=== PATIENT | female | born 1985 | race Two or more races ===

== ENCOUNTER 2018-12-09 23:07 | Emergency (ER) | payer MEDICAID ==
[~2018-12-09] VITALS: Ht 167.6 cm; Wt 113.4 kg
[~2018-12-09 23:07] MED LIST: ALBUTEROL2.5 MG/3 M INH
[2018-12-09 23:10] VITALS: BP 133/82
--- NOTE | 2018-12-09 23:10 | NUR ---
ED Nurse Note: Pt was BIBA from home, c/o right side of abdominal pain 07/31 today. Pt is A/O X 4. Vital signs stable at this time. waitng for orders.
[2018-12-09] MEDS ORDERED: Morphine Sulfate 4mg/ml Inj (IV USE ONLY) IVP ONE (23:15)
[2018-12-09 23:35] LABS: BASOPHILS % (AUTO) 1.2 % (0.0-2.0); EOSINOPHILS % (AUTO) 1.4 % (0.0-3.0); HEMATOCRIT 42.5 % (37.0-47.0); HEMOGLOBIN 14.8 G/DL (12.0-16.0); LYMPHOCYTES % (AUTO) 24.4 % (20.0-45.0); MEAN CORPUSCULAR VOLUME 90 FL (80-99); MONOCYTES % (AUTO) 6.6 % (1.0-10.0); NEUTROPHILS % (AUTO) 66.3 % (45.0-75.0); PLATELET COUNT 261 K/UL (150-450); WHITE BLOOD COUNT 9.4 K/UL (4.8-10.8)
[2018-12-09 23:45] LABS: ANION GAP 6 mmol/L (5-15); BLOOD UREA NITROGEN 10 mg/dL (7-18); CALCIUM 8.3 MG/DL (8.5-10.1); CARBON DIOXIDE 30 MMOL/L (21-32); CHLORIDE 101 MMOL/L (98-107); CREATININE 0.6 MG/DL (0.55-1.30); POTASSIUM 4.7 MMOL/L (3.5-5.1); SODIUM 136 MMOL/L (136-145)
[2018-12-09 23:49] LABS: ALANINE AMINOTRANSFERASE 24 U/L (12-78); ALBUMIN 3.3 G/DL (3.4-5.0); ALBUMIN/GLOBULIN RATIO 0.8 (1.0-2.7); ALKALINE PHOSPHATASE 54 U/L (46-116); ASPARTATE AMINO TRANSFERASE 39 U/L (15-37); BILIRUBIN,TOTAL 0.4 MG/DL (0.2-1.0)
--- NOTE | 2018-12-10 00:05 | NUR ---
ED Nurse Note: Blood sample collected and sent to Lab.
--- NOTE | 2018-12-10 00:09 | NUR ---
ED Nurse Note: Pain meds given as ordered.
--- NOTE | 2018-12-10 00:10 | NUR ---
ED Nurse Note: Pt was sent down for CT of Abdomen.
--- NOTE | 2018-12-10 00:25 | NUR ---
ED Nurse Note: Pt was returned from CT.
--- NOTE | 2018-12-10 00:30 | NUR ---
ED Nurse Note: IV was infiltrated. Tried to insert IV by . NO IV access at this time.
[2018-12-10] MEDS ORDERED: HYDROmorphone 1mg/ml Carpuject IM ONE (00:45)
--- NOTE | 2018-12-10 00:52 | NUR ---
ED Nurse Note: Repeated Pain meds given by IM.
--- NOTE | 2018-12-10 01:15 | Emergency Room Report ---
History of Present Illness General Chief Complaint: Abdominal Pain Source: Patient, EMS Present Illness HPI This is a 33-year-old female with no past medical history. She presents with chief complaint is abdominal pain. Onset was an hour prior to arrival. Pain was acute. Pain is severe. 10 out of 10. Localized to the upper quadrants. Has nausea vomiting. Has diarrhea. Never had this problem before. Admits to using methamphetamine earlier this morning. No other complaint. Has abdominal pain before but never this severe. Nothing made it better. Palpation made it worse. Allergies: Coded Allergies: No Known Allergies (Unverified , 12/09/18) Patient History Past Medical History: see triage record, old chart reviewed Past Surgical History: none Pertinent Family History: none Social History: Reports: smoking, drug use - Methamphetamine Now: No Immunizations: other Reviewed Nursing Documentation: PMH: Agreed; PSxH: Agreed Nursing Documentation-PMH Past Medical History: No History, Except For Review of Systems Eye: Denies: eye pain, blurred vision ENT: Denies: ear pain, nose congestion, throat swelling Respiratory: Denies: cough, shortness of breath Cardiovascular: Denies: chest pain, palpitations Gastrointestinal: Reports: abdominal pain, nausea, vomiting; Denies: diarrhea Musculoskeletal: Denies: back pain, joint pain Skin: Denies: rash Neurological: Denies: headache, numbness Endocrine: Denies: increased thirst, increased urine Hematologic/Lymphatic: Denies: easy bruising All Other Systems: negative except mentioned in HPI Physical Exam Vital Signs Date Time Temp Pulse Resp B/P (MAP) Pulse Ox O2 Delivery O2 Flow Rate FiO2 12/09/18 23:00 98.8 87 28 130/61 100 Room Air vitals normal Sp02 EP Interpretation: reviewed, normal General Appearance: well appearing, no apparent distress, alert, moderate distress - From pain, obese Head: normocephalic, atraumatic Eyes: bilateral eye PERRL, bilateral eye EOMI ENT: hearing grossly normal, normal pharynx Neck: full range of motion, supple, no meningismus Respiratory: chest non-tender, lungs clear, normal breath sounds Cardiovascular #1: regular rate, rhythm, no murmur Gastrointestinal: normal bowel sounds, no mass, no organomegaly, no bruit, non- distended, tenderness - Diffuse, upper quadrants Musculoskeletal: back normal, gait/station normal, normal range of motion Psychiatric: anxious Skin: warm/dry Medical Decision Making Diagnostic Impression: Primary Impression: Cholelithiasis Qualified Codes: K80.20 - Calculus of gallbladder without cholecystitis without obstruction Additional Impression: Morbid obesity with BMI of 40.0-44.9, adult ER Course Patient with abdominal pain. CT scan showed large gallstone. Patient felt better now. Patient was a very poor IV access. Her IV infiltrated. She had rash with injection of morphine to the left arm. Benadryl given. No evidence of obstruction or cholecystitis. We'll discharge home once pain is better controlled. CT/MRI/US Diagnostic Results CT/MRI/US Diagnostic Results : Imaging Test Ordered: CT abdomen and pelvis Impression read by radiologist. Distended gallbladder with 1.6 cm gallstone Last Vital Signs Date Time Temp Pulse Resp B/P (MAP) Pulse Ox O2 Delivery O2 Flow Rate FiO2 12/09/18 23:10 98.4 82 28 133/82 100 Room Air Status: improved Disposition: HOME, SELF-CARE Condition: Stable Scripts Ibuprofen* (MOTRIN*) 600 Mg Tablet 600 MG ORAL THREE TIMES A DAY, #30 TAB 0 Refills Prov: Norman Richard MD 12/10/18 Hydrocodone/Acetaminophen 5-325* (HYDROCODONE/ACETAMINOPHEN 5-325*) 1 Each Tablet 1 TAB ORAL Q6H PRN for For Pain, #10 TAB 0 Refills Prov: Norman Richard MD 12/10/18 Referrals: NON PHYSICIAN (PCP) Additional Instructions: Follow up with your doctor in 7 days. You may need a referral to see a surgeon. Return if symptoms worsen. Norman Richard MD Dec 10, 2018 01:15
[2018-12-10 01:59] LABS: APPEARANCE,URINE CLEAR; BILIRUBIN, URINE NEGATIVE (NEGATIVE); COLOR,URINE PALE YELLOW; GLUCOSE, URINE (UA) NEGATIVE (NEGATIVE); KETONES,URINE NEGATIVE (NEGATIVE); LEUKOCYTE ESTERASE ,URINE NEGATIVE (NEGATIVE); NITRITE,URINE NEGATIVE (NEGATIVE); PH,URINE 8 (4.5-8.0); PROTEIN,URINE NEGATIVE (NEGATIVE); UROBILINOGEN,URINE NORMAL MG/DL (0.0-1.0)
[2018-12-10] MEDS ORDERED: IBUPROFEN600 MG ORAL (02:23)
[2018-12-10] MEDS ORDERED: HYDROCODON-ACE1 EA15 ORAL (02:23)
[2018-12-10 02:52] VITALS: BP 135/81
--- NOTE | 2018-12-10 02:52 | NUR ---
ER DISCHARGE NOTE: Patient is cleared to be discharged per ERMD, pt is aox4, on room air, with stable vital signs. pt was given dc and prescription instructions, pt was able to verbalize understanding, pt id band and iv site removed without complications. pt is able to ambulate with steady gait. pt took all belongings.
--- NOTE | 2018-12-10 09:22 | Diagnostic Imaging Report ---
Indication: Abdominal pain Technique: Spiral acquisitions obtained through the abdomen and pelvis. No oral contrast utilized, per emergency room physician request No IV contrast utilized, per referring physician request.. Multiplanar reconstructions were generated. Total dose length product 1091.38 mGycm. CTDIvol(s) 19.51 mGy. Dose reduction achieved using automated exposure control Comparison: None Findings: There is colonic diverticulosis. No evidence of diverticulitis. The appendix is normal. No free or loculated intraperitoneal gas or fluid is evident. No small bowel distention. Distal esophagus, stomach, duodenum are unremarkable. There is a tiny fat-containing umbilical hernia. Lack of IV contrast limits assessment of the solid organs. The gallbladder contains a stone at or near the neck. It is minimally distended, no gallbladder wall thickening or pericholecystic inflammation demonstrated. No biliary ductal dilatation. The liver, pancreas, spleen, adrenals, kidneys, ureters and bladder are all unremarkable. No renal or ureteral calculi, hydronephrosis, or hydroureter. Unremarkable uterus and ovaries. No pelvic mass or adenopathy. The included lung bases are clear. The bones are unremarkable except for a focus of osteitis condensans ilii on the left. There are degenerative changes of the bilateral sacroiliac joints. Impression: No definite acute abnormality Cholelithiasis Incidental finding of bilateral sacroiliac degenerative changes, left-sided osteitis condensans ilii This agrees with the preliminary interpretation provided overnight by [facility] service. The CT scanner at [facility] is accredited by the [employer] and the scans are performed using protocols designed to limit radiation exposure to as low as reasonably achievable to attain images of sufficient resolution adequate for diagnostic evaluation.
== END 2018-12-10 02:52 | disposition home or self-care (01) ==
LOC: EDBD 23:07 → EMR 23:17
DX: K80.20 Calculus of gallbladder without cholecystitis without obstruction (principal); E66.01 Morbid (severe) obesity due to excess calories; Z68.41 Body mass index [BMI] 40.0-44.9, adult
CPT/HCPCS: 36415; 74176; 80053; 81003; 83690; 85025; 96361; 96372; 96374; 96375; 99284; J1170; J2270; J2405